=== PATIENT | male | born 1970 | race Caucasian/White ===

== ENCOUNTER 2025-11-12 14:07 | Inpatient (IN) | payer MEDICAID ==
[~2025-11-12] VITALS: Ht 175.3 cm; Wt 113.9 kg
[2025-11-12] VITALS (24 sets, daily range): BP systolic 95–166; BP diastolic 63–141; PULSE 87–125; RESP 13–27; TEMP 37.1–37.2; O2SAT 91–99
[2025-11-12] MEDS: ATROPINE SULFATE 1MG/10ML SYR IV ONE (14:58)
[2025-11-12] MEDS: ONDANSETRON HCL 4MG/2ML INJ IV ONE (14:58)
[2025-11-12] MEDS: SODIUM CHLORIDE 0.9% 1,000 ML IV ONE ×3 (15:00→17:17)
[2025-11-12 15:24] LABS: BASOPHILS % 0.6 % (0.0-2.0); EOSINOPHILS % 0.2 % (0.0-5.0); HEMATOCRIT. 52.4 % (42.0-52.0); HEMOGLOBIN. 16.6 g/dL (14.0-18.0); LYMPHOCYTES % 8.8 % (20.0-50.0); MEAN PLATELET VOLUME 12.4 fl (7.4-10.4); MONOCYTES % 4.9 % (2.0-8.0); NEUTROPHILS % 85.5 % (40.0-76.0); PLATELET 142 x1000/uL (130-400); RED BLOOD CELL COUNT 5.39 mill/uL (4.7-6.1); RED CELL DISTRIBUTION WIDTH 16.7 % (11.6-14.6)
[2025-11-12 15:42] LABS: TROPONIN I HIGH SENSITIVITY 215 ng/L (3.0-53)
[2025-11-12 15:44] LABS: CREATININE 1.9 mg/dL (0.6-1.3); UREA NITROGEN BLOOD 9 mg/dL (9-23)
[2025-11-12 15:45] LABS: ETHANOL BLOOD < 10 mg/dL (<10); PROTEIN TOTAL 7.8 g/dL (6.0-8.3)
[2025-11-12] MEDS ORDERED: SODIUM BICARBONATE 8.4% 50MEQ/50ML VIAL IV ONE (15:45)
[2025-11-12 15:46] LABS: ASPARTATE AMINOTRANSFERASE 35 IU/L (<34); BILIRUBIN DIRECT 1.2 mg/dL (<=3.0); BILIRUBIN TOTAL 3.3 mg/dL (0.1-1.0)
[2025-11-12] MEDS: CALCIUM GLUCONATE 100MG/ML 10ML VIAL IV ONE (16:38)
[2025-11-12] MEDS: SODIUM BICARBONATE 8.4% 50MEQ/50ML SYR IV SCH (16:39)
[2025-11-12] MEDS: DEXTROSE 50% WATER 50ML SYRINGE IV ONE (16:39)
[2025-11-12] MEDS: INSULIN REGULAR (HUMULIN R) 1000UNITS/10ML VIAL IV ONE (16:41)
[2025-11-12] MEDS: NOREPINEPHRINE 8MG/250ML PMX 250 ML IV ONE (17:16)
[2025-11-12] MEDS: PIPERACILLIN/TAZO 3.375G/50ML 50 ML IV ONE (17:38)
[2025-11-12] MEDS ORDERED: NOREPINEPHRINE 8MG/250ML PMX 250 ML IV PRN (18:00)
[2025-11-12] MEDS ORDERED: ONDANSETRON HCL 4MG/2ML INJ IV PRN (18:00)
[2025-11-12] MEDS ORDERED: ACETAMINOPHEN 650MG/20.3ML UDC GT PRN (18:00)
[2025-11-12] MEDS ORDERED: ACETAMINOPHEN 650MG SUPP PR PRN (18:00)
[2025-11-12] MEDS ORDERED: IPRATROPIUM/ALBUTEROL 0.5-3(2.5)MG/3ML NEB HHN PRN (18:00)
[2025-11-12] MEDS ORDERED: DOPAMINE 400MG/250ML PREMIX 250 ML IV PRN (18:00)
[2025-11-12] MEDS ORDERED: CLONIDINE 0.1MG TABLET PO PRN (18:00)
[2025-11-12] MEDS ORDERED: ACETAMINOPHEN 325MG TABLET PO PRN (18:00)
[2025-11-12 18:09] LABS: INR 1.2
[2025-11-12 18:29] LABS: TROPONIN I HIGH SENSITIVITY 213 ng/L (3.0-53)
[2025-11-12] MEDS ORDERED: DEXTROSE 50% WATER 50ML SYRINGE IV ONE (18:45)
[2025-11-12] MEDS ORDERED: INSULIN REGULAR (HUMULIN R) 1000UNITS/10ML VIAL IV ONE (18:45)
[2025-11-12] MEDS ORDERED: DEXTROSE 50% WATER 50ML SYRINGE IV PRN (18:45)
[2025-11-12] MEDS ORDERED: CALCIUM GLUCONATE 100MG/ML 10ML VIAL IV ONE (18:45)
[2025-11-12 19:24] LABS: BG BASE EXCESS -3.0 mmol/L (-2.0-3.0); BG CARBOXYHEMOGLOBIN 2.0 % (0.5-1.5); BG DEOXYHEMOGLOBIN 10.4 % (0.0-5.0); BG FRACTION INSPIRED OXYGEN 21; BG HCO3 ACT 21.3 mmol/L (21.0-28.0); BG METHEMOGLOBIN 0.2 % (0.5-1.5); BG OXYGEN SATURATION 89.4 % (94.0-98.0); BG OXYHEMOGLOBIN 87.4 % (94.0-98.0); BG PCO2 36.4 mmHg (35.0-48.0); BG PH 7.386 (7.350-7.450); BG PO2 57.1 mmHg (83.0-108.0); BG SAMPLE SITE RIGHT RADIAL; BG TOTAL HEMOGLOBIN 15.8 g/dL (13.5-17.5); BG VENT MODE ROOM AIR
[2025-11-12] MEDS: INSULIN LISPRO 100 UNITS/ML SUBCUT SCH (21:00)
[2025-11-12] MEDS: EMPAGLIFLOZIN 10MG TABLET PO SCH (21:03)
[2025-11-12] MEDS: FUROSEMIDE 40MG/4ML VIAL IV SCH (21:03)
[2025-11-12] MEDS: ENOXAPARIN 120MG/0.8ML SYR SUBCUT SCH (21:03)
[2025-11-12] MEDS: SODIUM ZIRCONIUM CYCLOSILICATE 10GM/PACKET PO SCH (21:04)
[2025-11-12] MEDS: BLOOD SUGAR DIAGNOSTIC STRIP TEST SCH (21:04)
[2025-11-12] MEDS: SPIRONOLACTONE 12.5MG TABLET PO SCH (21:04)
[2025-11-12 22:39] LABS: CLARITY URINE TURBID (CLEAR); COLOR URINE DARK YELLOW (YELLOW); GLUCOSE URINE TRACE (NEGATIVE); KETONES URINE TRACE (NEGATIVE); LEUKOCYTE ESTERASE URINE 2+ (NEGATIVE); NITRITE URINE NEGATIVE (NEGATIVE); OCCULT BLOOD URINE TRACE (NEGATIVE); PH URINE 5.5 (4.5-8.0); PROTEIN URINE 4+ (NEGATIVE); SPECIFIC GRAVITY URINE 1.024 (1.005-1.030); UROBILINOGEN URINE 1.0 E.U./dL (0.2-1.0)
[2025-11-12 22:53] LABS: *AMPHETAMINES SCREEN URINE NEGATIVE (NEGATIVE); *BARBITURATES SCREEN URINE NEGATIVE (NEGATIVE); *BENZODIAZEPINES SCREEN URINE NEGATIVE (NEGATIVE); *COCAINE SCREEN URINE NEGATIVE (NEGATIVE); BACTERIA URINE TRACE; METHADONE URINE SCREEN NEGATIVE (NEGATIVE); OPIATES URINE SCREEN NEGATIVE (NEGATIVE); PHENCYCLIDINE URINE SCREEN NEGATIVE (NEGATIVE); RBC URINE 0-2 /hpf (0-2); SQUAMOUS EPITHELIAL CELL URINE 1+ /lpf (RARE/1+)
[2025-11-12 22:54] LABS: CANNABINOID URINE SCREEN PRESUMPTIVE POSITIVE (NEGATIVE); ECSTASY MDMA SCREEN URINE NEGATIVE (NEGATIVE)
[2025-11-13] VITALS (45 sets, daily range): BP systolic 109–158; BP diastolic 85–126; PULSE 57–128; RESP 14–41; TEMP 36.7–37.2; O2SAT 89–98
[2025-11-13 06:18] LABS: BASOPHILS % 1.1 % (0.0-2.0); EOSINOPHILS % 0.1 % (0.0-5.0); HEMATOCRIT. 44.9 % (42.0-52.0); HEMOGLOBIN. 14.7 g/dL (14.0-18.0); LYMPHOCYTES % 20.8 % (20.0-50.0); MEAN PLATELET VOLUME 12.5 fl (7.4-10.4); MONOCYTES % 8.1 % (2.0-8.0); NEUTROPHILS % 69.9 % (40.0-76.0); PLATELET 117 x1000/uL (130-400); RED BLOOD CELL COUNT 4.73 mill/uL (4.7-6.1); RED CELL DISTRIBUTION WIDTH 16.2 % (11.6-14.6)
[2025-11-13 06:24] LABS: CREATININE 2.4 mg/dL (0.6-1.3); TRIGLYCERIDE 85.0 mg/dL (0-150); UREA NITROGEN BLOOD 21.0 mg/dL (9-23)
[2025-11-13 06:25] LABS: CREATINE KINASE MB FRACTION 3.0 ng/mL (0.5-3.6); LDL CHOLESTEROL 58.0 mg/dL (5-100)
[2025-11-13] MEDS: PANTOPRAZOLE SODIUM 40 MG/VIAL IV SCH (08:43)
[2025-11-13] MEDS: CEFTRIAXONE 1GM/50ML 50 ML IV SCH (11:33)
[2025-11-13] MEDS ORDERED: DEXTROSE 50% WATER 50ML SYRINGE IV PRN (16:30)
[2025-11-13] MEDS: INSULIN LISPRO 100 UNITS/ML SUBCUT SCH (17:15)
[2025-11-13] MEDS: DILTIAZEM HCL 30MG TABLET PO SCH (18:07)
[2025-11-13] MEDS: BLOOD SUGAR DIAGNOSTIC STRIP TEST SCH (18:23)
[2025-11-14] MEDS ORDERED: FUROSEMIDE 40MG/4ML VIAL IV SCH (09:00)
== END 2025-11-13 22:45 | disposition short-term general hospital (02) | DRG 194 ==
LOC: ER 14:07 → EDBEDREQ 16:55 → EDBEDREQSVC 16:55 → EDBEDREQTM 16:55 → CVICU 17:14 → EDBEDREQSVC 17:17 → 5WST 11-13 17:14
PROVIDERS: ADMIT Hospitalist; ATTEND Hospitalist
DX: I13.0 Hypertensive heart and chronic kidney disease with heart failure and stage 1 through stage 4 chronic kidney disease, or unspecified chronic kidney disease (principal); R57.0 Cardiogenic shock; N17.0 Acute kidney failure with tubular necrosis; D69.6 Thrombocytopenia, unspecified; R18.8 Other ascites; N39.0 Urinary tract infection, site not specified; Z79.01 Long term (current) use of anticoagulants; E66.01 Morbid (severe) obesity due to excess calories; K74.60 Unspecified cirrhosis of liver; N18.9 Chronic kidney disease, unspecified; E11.22 Type 2 diabetes mellitus with diabetic chronic kidney disease; I50.23 Acute on chronic systolic (congestive) heart failure; I21.A1 Myocardial infarction type 2; I44.1 Atrioventricular block, second degree; D75.1 Secondary polycythemia; R00.1 Bradycardia, unspecified; K57.30 Diverticulosis of large intestine without perforation or abscess without bleeding; I87.2 Venous insufficiency (chronic) (peripheral); E87.5 Hyperkalemia; I48.91 Unspecified atrial fibrillation; Z88.5 Allergy status to narcotic agent; Z79.84 Long term (current) use of oral hypoglycemic drugs; Z68.37 Body mass index [BMI] 37.0-37.9, adult; I25.10 Atherosclerotic heart disease of native coronary artery without angina pectoris; Z95.5 Presence of coronary angioplasty implant and graft; T50.1X6A Underdosing of loop [high-ceiling] diuretics, initial encounter; Y92.89 Other specified places as the place of occurrence of the external cause; Z79.4 Long term (current) use of insulin; E11.649 Type 2 diabetes mellitus with hypoglycemia without coma; Z79.899 Other long term (current) drug therapy
CPT/HCPCS: 36415; 36600; 71045; 74176; 76700; 80048; 80061; 80076; 80162; 80305; 80320; 81003; 82375; 82553; 82805; 82962; 83036; 83605; 83735; 83880; 84443; 84484; 85025; 86850; 86900; 93005; 93970; 96361; 96374; 96375; 99291; A4615; J0461; J0612; J0696; J1650; J1815; J1938; J2405; J2470; J2543; J3490; J7030; G0480